=== PATIENT | female | born 1980 | race Caucasian/White ===

== ENCOUNTER → 2021-01-25 | Outpatient (CLI) | payer BC | LOC: LAB 11:36 | DX: Z01.89 Encounter for other specified special examinations (principal) ==

== ENCOUNTER 2021-11-24 06:40 | Emergency (ER) | payer BC ==
[2021-11-24] MEDS ORDERED: DULOXETINE60 MG PO (07:56)
[2021-11-24] MEDS ORDERED: ZOFRAN ODT4 MG PO (08:15)
[2021-11-24 08:43] VITALS: BP 131/94
== END 2021-11-24 08:38 | disposition home or self-care (01) ==
LOC: ED 06:40
DX: S06.0X9A Concussion with loss of consciousness of unspecified duration, initial encounter (principal); W54.1XXA Struck by dog, initial encounter
CPT/HCPCS: 90715